=== PATIENT | female | born 2000 | race African-American/Black ===

== ENCOUNTER 2018-08-18 15:28 | Emergency (ER) | payer MEDICAID ==
[2018-08-18] MEDS ORDERED: IBUPROFEN 800 MG TAB PO (16:00)
== END 2018-08-18 17:33 | disposition home or self-care (01) ==
LOC: E/R 15:28
DX: O26.892 Other specified pregnancy related conditions, second trimester (principal); R10.30 Lower abdominal pain, unspecified; Z3A.20 20 weeks gestation of pregnancy
CPT/HCPCS: 76805; 99284-25

== ENCOUNTER 2018-08-18 18:16 | Outpatient (CLI) | payer MEDICAID ==
[2018-08-18 19:29] LABS: ADD MAN DIFF? NO
[2018-08-18 19:32] LABS: BASOPHILS % 0.4 % (0.0-2.0); EOSINOPHILS # 0.2 10^3/ul (0.0-0.5); EOSINOPHILS % 2.1 % (0.0-7.0); HEMATOCRIT 30.4 % (37.0-47.0); LYMPHOCYTES # 1.6 10^3/ul (0.8-2.9); LYMPHOCYTES % 20.7 % (18.0-55.0); MEAN CORPUSCULAR HEMOGLOBIN 29.9 pg (29.0-33.0); MEAN CORPUSCULAR HGB CONC 32.9 g/dl (32.0-37.0); MEAN CORPUSCULAR VOLUME 90.7 fl (72.0-104.0); MEAN PLATELET VOLUME 10.7 fl (7.4-10.4); MONOCYTE # 0.5 10^3/ul (0.3-0.9); MONOCYTES % 6.8 % (0.0-13.0); NEUTROPHIL # 5.4 10^3/ul (1.6-7.5); NEUTROPHILS % 69.7 % (30.0-74.0); PLATELET COUNT 217 10^3/UL (140-415); RED BLOOD COUNT 3.35 10^6/ul (4.20-5.40); RED CELL DISTRIBUTION WIDTH 13.2 % (11.5-14.5)
[2018-08-18 19:32] LABS: WHITE BLOOD COUNT 7.7 10^3/ul (4.8-10.8)
== END 2018-08-18 21:25 | disposition home or self-care (01) ==
LOC: OBT 18:16 → L-D 18:19 → OBT 21:25
DX: O26.892 Other specified pregnancy related conditions, second trimester (principal); Z3A.22 22 weeks gestation of pregnancy; R10.2 Pelvic and perineal pain
CPT/HCPCS: 85025; 85460; 86850; 86900; 86901